=== PATIENT | female | born 1995 | race Two or more races ===

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

== ENCOUNTER 2018-02-06 18:43 | Observation (INO) | payer MEDICAID ==
[~2018-02-06] VITALS: Ht 160 cm; Wt 49.9 kg
[~2018-02-06 18:43] MED LIST: PRENCAP61 PO
[2018-02-06 19:34] LABS: Urine Bacteria FEW /hpf (None Seen); Urine Blood Negative /uL (Negative); Urine Mucus FEW (None Seen); Urine Specific Gravity 1.016 (1.001-1.035); Urine WBC 6 /hpf (0 - 5)
[2018-02-06 19:57] LABS: Alcohol, Urine < 3.0 mg/dL (0-5); Amphetamine Screen, Urine NEGATIVE (NEGATIVE); Barbiturate Scree,Urine NEGATIVE (NEGATIVE); Benzodiazephine Screen, Urine NEGATIVE (NEGATIVE); Cannabinoid Screen, Urine NEGATIVE (NEGATIVE); Cocaine Screen, Urine NEGATIVE (NEGATIVE); Opiate Scree,Urine NEGATIVE (NEGATIVE); Phencyclidine Screen, Urine NEGATIVE (NEGATIVE)
== END 2018-02-06 20:19 | disposition home or self-care (01) | DRG 566 ==
LOC: LDRP 18:43
PROVIDERS: ADMIT Obstetrics & Gynecology; ATTEND Obstetrics & Gynecology
DX: O26.893 Other specified pregnancy related conditions, third trimester (principal); R10.30 Lower abdominal pain, unspecified; O46.93 Antepartum hemorrhage, unspecified, third trimester; Z3A.34 34 weeks gestation of pregnancy
CPT/HCPCS: 59025; 76805; 80307; 81001; 81002; G0378

== ENCOUNTER 2020-04-14 15:36 | Observation (INO) | payer MEDICAID ==
[~2020-04-14] VITALS: Ht 160 cm; Wt 49.9 kg
[2020-04-14] MEDS ORDERED: LACTATED RINGER'S 1,000 ML IV ONE (16:42)
[2020-04-14 17:02] LABS: Urine Bacteria FEW /hpf (None Seen); Urine Blood Negative /uL (Negative); Urine Mucus FEW (None Seen); Urine Specific Gravity 1.027 (1.001-1.035); Urine WBC 69 /hpf (0 - 5)
[2020-04-14 17:13] LABS: Alcohol, Urine < 3.0 mg/dL (0-10); Amphetamine Screen, Urine NEGATIVE (NEGATIVE); Barbiturate Scree,Urine NEGATIVE (NEGATIVE); Benzodiazephine Screen, Urine NEGATIVE (NEGATIVE); Cannabinoid Screen, Urine NEGATIVE (NEGATIVE); Cocaine Screen, Urine NEGATIVE (NEGATIVE); Opiate Scree,Urine NEGATIVE (NEGATIVE); Phencyclidine Screen, Urine NEGATIVE (NEGATIVE)
[2020-04-14] MEDS: TERBUTALINE SULFATE 1 MG/ML 1ML VIAL SC SCH ×2 (17:24→19:12)
== END 2020-04-14 21:02 | disposition home or self-care (01) | DRG 566 ==
LOC: LDRP 15:36
PROVIDERS: ADMIT Obstetrics & Gynecology; ATTEND Obstetrics & Gynecology
DX: O62.9 Abnormality of forces of labor, unspecified (principal); J90 Pleural effusion, not elsewhere classified; R18.8 Other ascites; O26.893 Other specified pregnancy related conditions, third trimester; O09.30 Supervision of pregnancy with insufficient antenatal care, unspecified trimester; R05 Cough; O09.33 Supervision of pregnancy with insufficient antenatal care, third trimester; O35.8XX0 Maternal care for other (suspected) fetal abnormality and damage, not applicable or unspecified; O42.913 Preterm premature rupture of membranes, unspecified as to length of time between rupture and onset of labor, third trimester; Z3A.29 29 weeks gestation of pregnancy
CPT/HCPCS: 59025; 76805; 76818; 80307; 81001; 81002; 96360; 96361; 96372; G0378; J3105

== ENCOUNTER 2022-10-10 13:27 | Observation (INO) | payer MEDICAID ==
[~2022-10-10] VITALS: Ht 157.5 cm; Wt 63.5 kg
[2022-10-10] MEDS ORDERED: LACTATED RINGER'S 1,000 ML IV ONE (14:15)
[2022-10-10] MEDS ORDERED: TERBUTALINE SULFATE 1 MG/ML 1ML VIAL SC ONE (16:00)
== END 2022-10-10 16:55 | disposition home or self-care (01) ==
LOC: LDRP 13:27
PROVIDERS: ADMIT Obstetrics & Gynecology Obstetrics; ATTEND Obstetrics & Gynecology Obstetrics
DX: O36.8130 Decreased fetal movements, third trimester, not applicable or unspecified (principal); O62.9 Abnormality of forces of labor, unspecified; O42.913 Preterm premature rupture of membranes, unspecified as to length of time between rupture and onset of labor, third trimester; Z3A.35 35 weeks gestation of pregnancy; Z98.891 History of uterine scar from previous surgery
CPT/HCPCS: 59025; 76805; 81002; 84112; 94760; 96360; 96361; 96372; G0378; J3105; Q0114

== ENCOUNTER 2022-10-16 17:49 | Observation (INO) | payer SELFPAY ==
[~2022-10-16] VITALS: Ht 157.5 cm; Wt 57.6 kg
[2022-10-16] MEDS ORDERED: ceFAZolin 1GM/50ML 50 ML IV ONE (19:15)
[2022-10-16] MEDS ORDERED: ACETAMINOPHEN 325 MG TAB PO PRN (19:15)
[2022-10-16] MEDS ORDERED: LACTATED RINGER'S 1,000 ML IV ONE (19:15)
[2022-10-16 19:48] LABS: Basophils # (auto) 0 10 ^3/uL (0-0.2); Basophils % (auto) 0.3 % (0.0-2.0); Eosinophils # (auto) 0 10 ^3/uL (0-0.8); Eosinophils % (auto) 0.2 % (0.0-7.0); Hematocrit 29.7 % (36.0-46.0); Hemoglobin 9.9 g/dL (12.2-16.2); Lymphocytes # (auto) 1.1 10 ^3/uL (0.4-5.4); Lymphocytes % (auto) 11.9 % (10.0-50.0); Mean Corpuscular Hemoglobin 27.6 pg (28.0-32.0); Mean Corpuscular Hgb Conc. 33.4 g/dL (32.0-36.0); Mean Corpuscular Volume 82.6 fL (80.0-100.0); Monocytes # (auto) 0.8 10 ^3/uL (0-1.3); Monocytes % (auto) 9.1 % (0.0-12.0); Neutrophils # (auto) 7.3 10 ^3/uL (1.6-8.6); Neutrophils % (auto) 78.5 % (37.0-80.0); Nucleated Red Blood Cells % 0.1 %; Red Blood Cells 3.59 10^6/uL (4.0-5.20); Red Cell Distribution Width 14.6 % (11.8-14.3); White Blood Cell 9.3 10^3/uL (4.4-10.8)
[2022-10-16] MEDS: ceFAZolin 1GM/50ML 50 ML IV SCH ×2 (19:53→20:05)
[2022-10-16 20:01] LABS: Urine Bacteria NONE SEEN /hpf (None Seen); Urine Blood Negative /uL (Negative); Urine Specific Gravity 1.008 (1.001-1.035); Urine WBC 17 /hpf (0 - 5)
[2022-10-16 20:06] LABS: INR 0.91 (0.9-1.15); Partial Thromboplastin Time 26.4 sec (24.6-33.4)
[2022-10-16 20:12] LABS: Amphetamine Screen, Urine NEGATIVE (NEGATIVE); Barbiturate Scree,Urine NEGATIVE (NEGATIVE); Benzodiazephine Screen, Urine NEGATIVE (NEGATIVE); Cannabinoid Screen, Urine NEGATIVE (NEGATIVE); Cocaine Screen, Urine NEGATIVE (NEGATIVE); Opiate Scree,Urine NEGATIVE (NEGATIVE); Phencyclidine Screen, Urine NEGATIVE (NEGATIVE)
[2022-10-16 20:13] LABS: Albumin 2.5 g/dL (3.4-5.0); Calcium 8.3 mg/dL (8.5-10.1); Potassium 3.4 mmol/L (3.5-5.1)
[2022-10-16 20:16] LABS: BUN/Creatinine Ratio 5.6; Bilirubin, Total 0.6 mg/dL (0.2-1.0); Total Protein 6.7 g/dL (6.4-8.2)
[2022-10-16] MEDS: LACTATED RINGER'S 1,000 ML IV SCH ×2 (21:25→21:30)
[2022-10-17] MEDS ORDERED: CEPH-322 PO (00:30)
[2022-10-20 03:06] LABS: Rubella Antibodies, IgG <0.90 index (Immune >0.99)
== END 2022-10-17 02:30 | disposition home or self-care (01) ==
LOC: LDRP 17:49
PROVIDERS: ADMIT Obstetrics & Gynecology; ATTEND Obstetrics & Gynecology
DX: O99.513 Diseases of the respiratory system complicating pregnancy, third trimester (principal); Z20.822 Contact with and (suspected) exposure to COVID-19; J11.1 Influenza due to unidentified influenza virus with other respiratory manifestations; O62.9 Abnormality of forces of labor, unspecified; O99.891 Other specified diseases and conditions complicating pregnancy; M54.9 Dorsalgia, unspecified; Z3A.35 35 weeks gestation of pregnancy; Z98.891 History of uterine scar from previous surgery; Z79.899 Other long term (current) drug therapy
CPT/HCPCS: 36415; 59025; 76815; 80053; 80307; 81001; 81002; 85025; 85610; 85730; 86592; 86706; 86762; 86850; 86900; 86901; 87426; 87804; 94760; 96361; 96365; G0378; J0690; 96360